=== PATIENT | male | born 1980 | race African-American/Black ===

== ENCOUNTER 2019-01-17 11:15 | Emergency (ER) | payer OTHER ==
[~2019-01-17] VITALS: Ht 172.7 cm; Wt 63.5 kg
[2019-01-17 11:33] LABS: ABSOLUTE NEUTROPHILS 3.3 thou/uL (1.4-8.2); BASOPHILS 1.1 % (0.0-2.0); EOSINOPHILS 3.4 % (0.0-3.0); HEMATOCRIT 42.6 % (42.0-52.0); HEMOGLOBIN 14.7 gm/dL (14.0-18.0); LYMPHOCYTES 29.5 % (24.0-44.0); MCH 30.5 pg (26.0-34.0); MCHC 34.4 g/dL (28.0-37.0); MCV 88.8 fL (80.0-100.0); MONOCYTES 7.4 % (1.0-8.0); PLATELET COUNT 256 thou/uL (150-400); POLYS 58.6 % (36.0-66.0); RDW 13.2 % (10.5-14.5); WBC 5.7 thou/uL (4.0-11.0)
[2019-01-17 11:41] LABS: CALCIUM 9.4 mg/dL (8.5-10.1); CREATININE 1.6 mg/dL (0.7-1.3); POTASSIUM 3.4 mmol/L (3.5-5.1)
[2019-01-17 11:47] LABS: TOTAL BILIRUBIN 0.8 mg/dL (<0.1-1.0); TOTAL PROTEIN 7.2 g/dL (6.4-8.2)
[2019-01-17 13:49] LABS: URINE BLOOD NEGATIVE (Negative); URINE CLARITY CLEAR; URINE COLOR YELLOW; URINE GLUCOSE-RANDOM* NEGATIVE (Negative); URINE KETONES TRACE (Negative); URINE LEUKOCYTES-REFLEX NEGATIVE (Negative); URINE NITRITE-REFLEX NEGATIVE (Negative); URINE PROTEIN (DIPSTICK) 1+ (Negative); URINE SPECIFIC GRAVITY >= 1.030 (1.005-1.035)
[2019-01-17 13:52] LABS: ICTOTEST (BILI CONFIRMATORY) Negative (Negative); URINE BILIRUBIN NEGATIVE (Negative)
[2019-01-17] MEDS ORDERED: ZOFRAN ODT4 MG PO (13:55)
[2019-01-17 14:00] VITALS: BP 108/59
[2019-01-17 14:00] LABS: SQUAMOUS 0-3 Few /LPF (0-3)
[2019-01-17 14:01] LABS: BACTERIA-REFLEX None Seen /HPF (None Seen); CRYSTALS None Seen /LPF (None Seen); HYALINE CASTS 0-3 Few /LPF (None Seen); MUCUS >6 Heavy strn/LPF (None Seen); URINE RBC 0-2 Rare /HPF (0-2); URINE WBC-REFLEX 6-15 Few /HPF (0-5)
== END 2019-01-17 14:00 | disposition home or self-care (01) ==
LOC: ER 11:15
PROVIDERS: Emergency Medicine
DX: R11.0 Nausea (principal); R74.8 Abnormal levels of other serum enzymes

== ENCOUNTER 2019-02-05 19:49 | Emergency (ER) | payer OTHER ==
[~2019-02-05] VITALS: Ht 172.7 cm; Wt 65.8 kg
[~2019-02-05 19:49] MED LIST: ZOFRAN ODT4 MG PO
[2019-02-05 19:50] VITALS: BP 121/78
== END 2019-02-05 20:38 | disposition home or self-care (01) ==
LOC: ER 19:49
DX: R10.9 Unspecified abdominal pain (principal); R11.0 Nausea